=== PATIENT | male | born 1980 | race African-American/Black ===

== ENCOUNTER 2022-07-07 09:28 | Inpatient (IN) | payer MEDICAID ==
[~2022-07-07] VITALS: Ht 185.4 cm; Wt 82.1 kg
[2022-07-07] MEDS ORDERED: KETOROLAC 30MG/ML VIAL IV STA (10:14)
[2022-07-07] MEDS ORDERED: SODIUM CHLORIDE 0.9% 1,000 ML IV ONE (10:15)
[2022-07-07 10:46] LABS: BG BASE EXCESS -0.6 mmol/L (-2.0-2.0); BG CARBOXYHEMOGLOBIN 0.8 % (0.5-1.5); BG DEOXYHEMOGLOBIN 2.2 % (0.0-5.0); BG FRACTION INSPIRED OXYGEN 100; BG HCO3 ACT 19.3 mmol/L (22.0-26.0); BG METHEMOGLOBIN 0.3 % (0.0-1.5); BG OXYGEN SATURATION 97.8 % (92.0-98.5); BG OXYHEMOGLOBIN 96.7 % (94.0-97.0); BG PCO2 21.9 mmHg (35.0-45.0); BG PH 7.564 (7.350-7.450); BG SAMPLE SITE RIGHT RADIAL; BG TOTAL HEMOGLOBIN 14.9 g/dL (12.0-18.0); BG VENT MODE MASK - NRB
[2022-07-07] MEDS ORDERED: DEXAMETHASONE 10 MG/ML VIAL IV ONE (11:00)
[2022-07-07 11:25] LABS: BASOPHILS % 0.5 % (0.0-2.0); EOSINOPHILS % 0.9 % (0.0-5.0); HEMATOCRIT. 40.8 % (42.0-52.0); HEMOGLOBIN. 14.1 g/dL (14.0-18.0); LYMPHOCYTES % 8.1 % (20.0-50.0); MEAN CORPUSCULAR HEMOGLOBIN 30.9 pg (28.0-32.0); MONOCYTES % 10.5 % (2.0-8.0); RED BLOOD CELL COUNT 4.58 mill/uL (4.7-6.1); RED CELL DISTRIBUTION WIDTH 12.5 % (11.6-14.6)
[2022-07-07 11:41] LABS: CHLORIDE 98 mEq/L (98-107)
[2022-07-07] MEDS ORDERED: AZITHROMYCIN 500MG/250ML 250 ML IV ONE (12:00)
[2022-07-07] MEDS ORDERED: CEFTRIAXONE 2 G in DEXTROSE 5% WATER 50 ML IV NR (12:00)
[2022-07-07] MEDS ORDERED: CEFTRIAXONE 2 G PREMIX 50 ML IV ONE (12:00)
[2022-07-07 12:16] LABS: D-DIMER 2.81 mg/L FEU (<0.50); PARTIAL THROMBOPLASTIN TIME 29.1 sec (23.4-31.0); PROTHROMBIN TIME 11.1 sec (9.6-11.0)
[2022-07-07 13:02] LABS: PLATELET 613 x1000/uL (130-400)
[2022-07-07 14:56] LABS: CLARITY URINE CLEAR (CLEAR); COLOR URINE YELLOW (YELLOW); KETONES URINE 2+ (NEGATIVE); LEUKOCYTE ESTERASE URINE NEGATIVE (NEGATIVE); NITRITE URINE NEGATIVE (NEGATIVE); OCCULT BLOOD URINE NEGATIVE (NEGATIVE); PH URINE 6.5 (4.5-8.0); PROTEIN URINE 1+ (NEGATIVE); SPECIFIC GRAVITY URINE 1.031 (1.005-1.030)
[2022-07-07] MEDS ORDERED: PIPERACILLIN/TAZ 3.375G PREMIX 50 ML IV NR (16:00)
[2022-07-07] MEDS ORDERED: MORPHINE SULFATE 2 MG/ML CPJ (NOT FOR IM USE) IV NR (16:15)
[2022-07-07] MEDS ORDERED: HYDRALAZINE 20MG/ML VIAL IV NR (16:15)
[2022-07-07] MEDS ORDERED: MORPHINE SULFATE 2 MG/ML CPJ (NOT FOR IM USE) IV PRN (16:15)
[2022-07-07] MEDS ORDERED: LABETALOL 5MG/ML SYR 20 MG/4 ML SYRINGE IV ONE (16:15)
[2022-07-07] MEDS ORDERED: NALOXONE HCL 0.4MG/ML VIAL IV PRN (16:45)
[2022-07-07] MEDS ORDERED: LABETALOL 5MG/ML SYR 20 MG/4 ML SYRINGE IV NR (19:30)
[2022-07-07] MEDS ORDERED: DEXTROSE 50% WATER 50ML SYRINGE IV PRN (22:00)
[2022-07-07] MEDS ORDERED: IOHEXOL-350 100 ML BOTTLE ONE (23:08)
[2022-07-07] MEDS: HYDRALAZINE 20MG/ML VIAL IV PRN (23:29)
[2022-07-08] VITALS (8 sets, daily range): BP systolic 130–160; BP diastolic 80–110
[2022-07-08] MEDS ORDERED: AMLO5TAB88 PO (06:38)
[2022-07-08] MEDS ORDERED: AMLO5TAB88 MT (06:38)
[2022-07-08] MEDS: BLOOD SUGAR DIAGNOSTIC STRIP TEST SCH ×4 (06:49→20:53)
[2022-07-08] MEDS: INSULIN LISPRO (MEDIUM DOSE) 100 UNITS/ML SUBCUT SCH ×4 (08:56→21:49)
[2022-07-08 10:39] LABS: EOSINOPHILS % 0.1 % (0.0-5.0); HEMATOCRIT. 39.9 % (42.0-52.0); HEMOGLOBIN. 13.5 g/dL (14.0-18.0); LYMPHOCYTES % 10.1 % (20.0-50.0); MEAN CORPUSCULAR HEMOGLOBIN 30.7 pg (28.0-32.0); MEAN CORPUSCULAR VOLUME 90.9 fL (80.0-94.0); MEAN PLATELET VOLUME 8.1 fl (7.4-10.4); MONOCYTES % 11.5 % (2.0-8.0); NEUTROPHILS % 78.3 % (40.0-76.0); PLATELET 578 x1000/uL (130-400); RED BLOOD CELL COUNT 4.39 mill/uL (4.7-6.1); RED CELL DISTRIBUTION WIDTH 12.5 % (11.6-14.6)
[2022-07-08 11:34] LABS: CHLORIDE 104 mEq/L (98-107)
[2022-07-08] MEDS ORDERED: PANTOPRAZOLE 40MG DR TABLET PO NR (12:15)
[2022-07-08 12:55] LABS: T4 FREE 1.44 ng/dL (0.76-1.46)
[2022-07-08] MEDS: METHYLPREDNISOLONE SOD SUCC 40 MG/ML VIAL IV SCH ×2 (13:31→21:49)
[2022-07-08] MEDS ORDERED: VANCOMYCIN 2,000 MG in DEXT 5% WATER 500 ML IV NR (14:00)
[2022-07-08] MEDS: PIPERACILLIN/TAZOBACTAM 3.375 G in DEXTROSE 5% WATER 50 ML IV SCH ×2 (18:58→21:20)
[2022-07-08] MEDS: VANCOMYCIN 1G PREMIX 200 ML IV SCH (20:10)
[2022-07-09] VITALS (8 sets, daily range): BP systolic 125–161; BP diastolic 60–113
[2022-07-09] MEDS: VANCOMYCIN 1G PREMIX 200 ML IV SCH ×3 (03:10→21:25)
[2022-07-09] MEDS: METHYLPREDNISOLONE SOD SUCC 40 MG/ML VIAL IV SCH ×3 (05:52→21:24)
[2022-07-09] MEDS: PIPERACILLIN/TAZOBACTAM 3.375 G in DEXTROSE 5% WATER 50 ML IV SCH ×3 (05:52→21:25)
[2022-07-09 07:05] LABS: CHLORIDE 97 mEq/L (98-107)
[2022-07-09] MEDS: BLOOD SUGAR DIAGNOSTIC STRIP TEST SCH ×4 (07:30→20:23)
[2022-07-09] MEDS: INSULIN LISPRO (MEDIUM DOSE) 100 UNITS/ML SUBCUT SCH ×4 (09:32→21:29)
[2022-07-09] MEDS ORDERED: INSULIN GLARGINE 100 UNITS/ML SUBCUT SCH (13:30)
[2022-07-09] MEDS ORDERED: INSULIN LISPRO 100 UNITS/ML SUBCUT SCH (17:30)
[2022-07-09] MEDS: HYDRALAZINE 20MG/ML VIAL IV PRN (19:45)
[2022-07-09] MEDS: HEPARIN 5000 UNITS/ML VIAL SUBCUT SCH (21:25)
[2022-07-10] VITALS (11 sets, daily range): BP systolic 142–169; BP diastolic 92–116
[2022-07-10 04:08] LABS: QFT MITOGEN VALUE 0.64 IU/mL (.); QFT TB GOLD PLUS Negative (Negative)
[2022-07-10] MEDS: METHYLPREDNISOLONE SOD SUCC 40 MG/ML VIAL IV SCH ×3 (05:43→21:10)
[2022-07-10] MEDS: VANCOMYCIN 1G PREMIX 200 ML IV SCH (05:43)
[2022-07-10] MEDS: PIPERACILLIN/TAZOBACTAM 3.375 G in DEXTROSE 5% WATER 50 ML IV SCH (05:43)
[2022-07-10] MEDS: HEPARIN 5000 UNITS/ML VIAL SUBCUT SCH ×3 (05:49→21:12)
[2022-07-10 06:24] LABS: CHLORIDE 100 mEq/L (98-107)
[2022-07-10 06:31] LABS: HEMATOCRIT. 39.6 % (42.0-52.0); HEMOGLOBIN. 13.8 g/dL (14.0-18.0); MEAN CORPUSCULAR HEMOGLOBIN 31.1 pg (28.0-32.0); MEAN CORPUSCULAR VOLUME 89.5 fL (80.0-94.0); MEAN PLATELET VOLUME 8.1 fl (7.4-10.4); PLATELET 624 x1000/uL (130-400); RED BLOOD CELL COUNT 4.42 mill/uL (4.7-6.1); RED CELL DISTRIBUTION WIDTH 12.6 % (11.6-14.6)
[2022-07-10] MEDS: BLOOD SUGAR DIAGNOSTIC STRIP TEST SCH ×4 (07:34→21:00)
[2022-07-10] MEDS: INSULIN LISPRO 100 UNITS/ML SUBCUT SCH ×3 (07:48→18:35)
[2022-07-10] MEDS: INSULIN LISPRO (MEDIUM DOSE) 100 UNITS/ML SUBCUT SCH ×4 (07:51→21:27)
[2022-07-10] MEDS ORDERED: INSULIN GLARGINE 100 UNITS/ML SUBCUT SCH (10:00)
[2022-07-10 11:36] LABS: BG BASE EXCESS 1.6 mmol/L (-2.0-2.0); BG CARBOXYHEMOGLOBIN 0.3 % (0.5-1.5); BG DEOXYHEMOGLOBIN 0.8 % (0.0-5.0); BG FRACTION INSPIRED OXYGEN 60; BG HCO3 ACT 26.4 mmol/L (22.0-26.0); BG METHEMOGLOBIN 0.3 % (0.0-1.5); BG OXYGEN SATURATION 99.2 % (92.0-98.5); BG OXYHEMOGLOBIN 98.6 % (94.0-97.0); BG PCO2 41.9 mmHg (35.0-45.0); BG PH 7.417 (7.350-7.450); BG PO2 334.8 mmHg (75.0-100.0); BG SAMPLE SITE RIGHT RADIAL; BG TOTAL HEMOGLOBIN 14.4 g/dL (12.0-18.0); BG VENT MODE MASK - NRB PARTIAL
[2022-07-10] MEDS: HYDRALAZINE 20MG/ML VIAL IV PRN (13:09)
[2022-07-10 16:30] LABS: PLATELET ESTIMATE INCREASED
[2022-07-11] VITALS (12 sets, daily range): BP systolic 135–166; BP diastolic 66–105
[2022-07-11] MEDS: METHYLPREDNISOLONE SOD SUCC 40 MG/ML VIAL IV SCH ×3 (04:27→21:57)
[2022-07-11] MEDS: HEPARIN 5000 UNITS/ML VIAL SUBCUT SCH ×3 (04:28→21:59)
[2022-07-11] MEDS: BLOOD SUGAR DIAGNOSTIC STRIP TEST SCH ×4 (07:30→21:57)
[2022-07-11] MEDS: HYDRALAZINE 20MG/ML VIAL IV PRN (09:33)
[2022-07-11] MEDS: INSULIN GLARGINE 100 UNITS/ML SUBCUT SCH ×2 (09:40→22:01)
[2022-07-11] MEDS: INSULIN LISPRO 100 UNITS/ML SUBCUT SCH ×2 (09:42→13:59)
[2022-07-11] MEDS: AMLODIPINE 10MG TABLET PO SCH (13:01)
[2022-07-11] MEDS: INSULIN LISPRO (MEDIUM DOSE) 100 UNITS/ML SUBCUT SCH ×3 (13:24→21:00)
[2022-07-11 14:29] LABS: BG BASE EXCESS 2.9 mmol/L (-2.0-2.0); BG CARBOXYHEMOGLOBIN 0.8 % (0.5-1.5); BG DEOXYHEMOGLOBIN 6.9 % (0.0-5.0); BG FRACTION INSPIRED OXYGEN 21; BG HCO3 ACT 25.5 mmol/L (22.0-26.0); BG METHEMOGLOBIN 0.1 % (0.0-1.5); BG OXYHEMOGLOBIN 92.2 % (94.0-97.0); BG PCO2 33.3 mmHg (35.0-45.0); BG PH 7.502 (7.350-7.450); BG PO2 64.8 mmHg (75.0-100.0); BG SAMPLE SITE RIGHT BRACHIAL; BG TOTAL HEMOGLOBIN 15.3 g/dL (12.0-18.0); BG VENT MODE ROOM AIR
[2022-07-12] VITALS (10 sets, daily range): BP systolic 139–157; BP diastolic 86–111
[2022-07-12] MEDS: METHYLPREDNISOLONE SOD SUCC 40 MG/ML VIAL IV SCH ×2 (06:19→12:27)
[2022-07-12] MEDS: HEPARIN 5000 UNITS/ML VIAL SUBCUT SCH ×2 (06:25→14:51)
[2022-07-12] MEDS: BLOOD SUGAR DIAGNOSTIC STRIP TEST SCH ×3 (07:56→18:05)
[2022-07-12] MEDS: INSULIN LISPRO (MEDIUM DOSE) 100 UNITS/ML SUBCUT SCH ×3 (08:04→18:07)
[2022-07-12] MEDS: AMLODIPINE 10MG TABLET PO SCH (08:04)
[2022-07-12] MEDS: INSULIN GLARGINE 100 UNITS/ML SUBCUT SCH (11:04)
[2022-07-12] MEDS ORDERED: PROT40 MT (16:26)
[2022-07-12] MEDS ORDERED: APIX2.5T MT (16:26)
[2022-07-12] MEDS ORDERED: P20 PO (16:26)
[2022-07-12] MEDS ORDERED: METOPROLOL TARTRATE 25MG TABLET PO SCH (21:00)
== END 2022-07-12 18:40 | disposition home or self-care (01) | DRG 139 ==
LOC: ER 09:28 → MICUSO 13:45 → EDBEDREQ 13:50 → EDBEDREQTM 13:50 → EDBEDREQSVC 13:50 → 5EST 07-08 05:59
PROVIDERS: ADMIT Internal Medicine; ATTEND Internal Medicine
PROC: 5A09357 Assistance with Respiratory Ventilation, Less than 24 Consecutive Hours, Continuous Positive Airway Pressure (ICD-10-PCS; principal; 2022-07-08)
DX: J15.9 Unspecified bacterial pneumonia (principal); J96.01 Acute respiratory failure with hypoxia; E87.1 Hypo-osmolality and hyponatremia; R65.10 Systemic inflammatory response syndrome (SIRS) of non-infectious origin without acute organ dysfunction; E11.65 Type 2 diabetes mellitus with hyperglycemia; E04.1 Nontoxic single thyroid nodule; E66.9 Obesity, unspecified; I10 Essential (primary) hypertension; T38.0X5A Adverse effect of glucocorticoids and synthetic analogues, initial encounter; Z68.23 Body mass index [BMI] 23.0-23.9, adult; Z86.16 Personal history of COVID-19; Z28.310 Unvaccinated for COVID-19; Z28.9 Immunization not carried out for unspecified reason; Z88.6 Allergy status to analgesic agent; Y92.89 Other specified places as the place of occurrence of the external cause
CPT/HCPCS: 36415; 36600; 71045; 71275; 80048; 80053; 80202; 81003; 82375; 82805; 82962; 83036; 83605; 83880; 84145; 84439; 84443; 84484; 85025; 85379; 85651; 86038; 86480; 86635; 86698; 87070; 87076; 87116; 87305; 87426; 87449; 87804; 87899; 93005; 93306; 94618; 94660; 99291; C9803; J0360; J0456; J0696; J1100; J1644; J1815; J1885; J2270; J2543; J2920; J3370; J3490; J7030; J7060; Q9967

== ENCOUNTER 2022-08-24 05:38 | Emergency (ER) | payer MEDICAID ==
[~2022-08-24] VITALS: Ht 188 cm; Wt 110.0 kg
[~2022-08-24 05:38] MED LIST: AMLO5TAB88 MT; AMLO5TAB88 PO; APIX2.5T MT; P20 PO; PROT40 MT
[2022-08-24 06:02] VITALS: BP 171/111
[2022-08-24] MEDS ORDERED: KETOROLAC 60MG/2ML VIAL IM ONE (08:00)
[2022-08-24] MEDS ORDERED: CYCLOBENZAPRINE 10MG TABLET PO ONE (08:00)
[2022-08-24] MEDS ORDERED: CYCL5TAB MT (09:25)
== END 2022-08-24 09:55 | disposition home or self-care (01) ==
LOC: ER 05:38
DX: G44.209 Tension-type headache, unspecified, not intractable (principal); I10 Essential (primary) hypertension; E11.9 Type 2 diabetes mellitus without complications; Z88.6 Allergy status to analgesic agent; Z88.5 Allergy status to narcotic agent; Z88.8 Allergy status to other drugs, medicaments and biological substances
CPT/HCPCS: 96372; 99283; J1885